=== PATIENT | male | born 2000 | race Caucasian/White ===

== ENCOUNTER 2024-02-06 17:27 | Emergency (ER) | payer OTHER, SELFPAY ==
[2024-02-06 17:39] VITALS: BP 152/65; PULSE 98; RESP 16; TEMP 36.8; O2SAT 100
--- NOTE | 2024-02-06 18:07 | ED.EYEPROB ---
HPI - Eye Problem General Chief complaint: Eye Problems Stated complaint: Eyes Irritation Time Seen by Provider: 02/06/24 17:45 Source: patient Mode of arrival: ambulatory Limitations: no limitations History of Present Illness HPI Narrative: Milton is a 23-year-old male patient presenting to the clinic today with complaints of left eye irritation/discomfort. He reports he was cutting some plywood yesterday and thinks he got some of the plywood in his left eye. Has pain to the left upper eye. Eye has been watering a lot and feels as though there may be something in it. Related Data Allergies Allergy/AdvReac Type Severity Reaction Status Date / Time No Known Allergies Allergy Mild Verified 02/06/24 17:31 Review of Systems Review of Systems: Pertinent positives per HPI. Patient denies any fever, chills, rash, headache, visual changes, dizziness, cough, runny nose, sore throat, shortness of breath, chest pain, palpitations, nausea, vomiting, diarrhea, constipation, abdominal pain, or any urinary issues. PMFSH Comments At the time of my signature, I reviewed and agree with the nursing past medical, surgical, social, and family history. There is no relevant family history pertinent to the patient complaint. Exam Narrative: General: Well-developed, well nourished, in no apparent distress Head: Normocephalic, atraumatic Eyes: Pupils equally round and reactive to light bilaterally, EOM intact, right sclera and conjunctive clear, no discharge, lids normal, left conjunctiva and sclera injected with corneal abrasion to the top of the left eye at 1200 above pupil. Ears: TMs intact and clear, ear canals clear, no drainage, grossly hearing normal. Nose: Nares patent, no discharge, no inflammation, no sinus tenderness. Mouth: Oropharynx without lesions or masses, good dentition, MMM. Neck: Supple, trachea midline, no enlargement of anterior or posterior cervical nodes, no thyroid masses or goiter palpable. Cardio: Regular rate and rhythm, s1 and s2 normal, no murmur appreciated. Resp: Clear to auscultation bilaterally anteriorly and posteriorly, no rhonchi, rales, wheezing or rubs Course Course Emergency Course: Portions of this record may have been created with voice recognition software. Level of Care: Express Care Visit Vital Signs Vital signs: Vital Signs Temperature 36.8 C 02/06/24 17:39 Pulse Rate 98 02/06/24 17:39 Respiratory Rate 16 02/06/24 17:39 Blood Pressure 152/65 H 02/06/24 17:39 Pulse Oximetry 100 02/06/24 17:39 Oxygen Delivery Room Air 02/06/24 17:39 Temperature 36.8 C 02/06/24 17:39 Pulse Rate 98 02/06/24 17:39 Respiratory Rate 16 02/06/24 17:39 Blood Pressure 152/65 H 02/06/24 17:39 Pulse Oximetry 100 02/06/24 17:39 Oxygen Delivery Room Air 02/06/24 17:39 Vital signs reviewed Procedures Other Procedure Procedure 1: Other Procedure: Topical anesthetic was instilled with good anesthesia using 1gtt of opth anesthetic agent (tetracaine). Fluorescein stain of the left eye was performed with a corneal abrasion to the left eye at 12:00 p.m. just above the people over the iris. NO FB, ulcer or dendritic lesions. Upper lid was everted and no FB or lesions were noted. NO Madhuri sign. Normal saline irrigation eye solution was performed and the patient tolerated the procedure well, no adverse reaction or complications. MDM - Eye Problem MDM Narrative Medical decision making narrative: At the time of visit patient is resting comfortably on the exam table. Patient appears to be nontoxic. Procedure: Wood's lamp exam was performed and a corneal abrasion was found at 12:00 p.m. just above the pupil-over the iris Plan: I suspect patient has a corneal abrasion. Prescription for tobramycin eyedrops was sent to the pharmacy. Supportive measures were discussed with the patient and they voiced understanding discharge instructions and agrees to treatment plan.
== END 2024-02-06 18:25 | disposition home or self-care (01) ==
PROVIDERS: Emergency Provider Nurse Practitioner Family
DX: S05.02XA Injury of conjunctiva and corneal abrasion without foreign body, left eye, initial encounter (principal); X58.XXXA Exposure to other specified factors, initial encounter
CPT/HCPCS: 99213; A9270; G0463

== ENCOUNTER 2025-02-22 05:20 | Emergency (ER) | payer OTHER, SELFPAY ==
--- NOTE | ~2025-02-22 | CT_ITS ---
Non-contrast Head CT History: Head injury Technique: Axial non-contrast imaging of the brain was performed. Dose reduction technique was used on this scan by utilizing automated exposure control and iterative reconstruction technique. The dose -length product (DLP) was 681.00 mGy-cm. Findings: There is no evidence of intracranial hemorrhage, mass lesion, or acute infarct. Brain par enchyma appears normal. The ventricles and subarachnoid spaces are normal in size. The calvarium ap pears normal. The visualized paranasal sinuses and mastoid air cells are clear. Impression: No significant abnormality seen. Reviewed, dictated and finalized at location . Impression: No significant abnormality seen.
--- NOTE | ~2025-02-22 | CT_ITS ---
CT Facial Bones and Cervical Spine Clinical Indication: Head injury Technique: Contiguous axial scans were obtained through the facial bones and cervical spine followed by coronal and sagittal reconstructions. Dose reduction technique was used on this scan by utilizing automated exposure control and iterative reconstruction technique. The dose-length product (DLP) was 276.37 mGy-cm. Findings: CT facial bones: There are acute bilateral nasal bone fractures, with rightward displacement/angulati on. Probable focal angulated nondisplaced fracture of the vomer. The visualized paranasal sinuses are clear. Intraorbital soft tissues appear normal. CT cervical spine: No fractures or subluxation. There is straightening of the normal cervical lordos is. The intervertebral disc spaces are preserved. No prevertebral soft tissue swelling. Impression: Acute, displaced/angulated bilateral nasal bone fractures. Probable focal angulated, nondisplaced fracture of the vomer. No fracture or subluxation of the cervical spine. Reviewed, dictated and finalized at [facility]. Impression: Acute, displaced/angulated bilateral nasal bone fractures. Probable focal angulated, nondisplaced fracture of the vomer. No fracture or subluxation of the cervical spine.
--- OUTSIDE RECORDS SUMMARY | 2025-02-22 05:22 | XMS_ITS | Clinical Summary ---
Author Organization [facility] Address [address] [place] [address] Care Team Providers Care Stitch Wheeler Name Role Phone Unavailable Primary Care Provider Unavailabl e Source Comments [facility],non-owned Affiliates and Associated Physician Practices is amultiple site organization consisting of ambulatory clinics and hospital sitesin [place], [place], [place] and [place]. This disclosure is being madepursuant to the Care Everywhere program and may not contain all information available regarding this patient. 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 Gender Identity Not on file Sexual Orientation Not on file Plan of Treatment Health Maintenance Due Date Last Done Comments HIV SCREENING 2014 HPV VACCINE (1 - Male 3-dose series) 2014 HEPATITIS C SCREENING 11/27/2017 DTAP/TDAP/TD VACCINES (1 - Tdap) 2018 HEPATITIS B VACCINE (1 of 3 - 19+ 3-dose series) 2018 COVID-19 VACCINE (1 - 2023-2 5 season) 2024 DEPRESSION SCREENING 10/08/2024 INFLUENZA VACCINE (Season Ended) 2025 ZOSTER VACCINE (1 of 2) 2049 HIB VACCINE Aged Out No longer eligi ble based on patient's age to complete this topic MENINGOCOCCAL (Group B) VACC INE SHARED DECISION-MAKING Aged Out No longer eligibl e based on patient's age to complete this topic MENINGOCOCCAL GROUPS A/C/Y/W VACCINE Aged Out No longer eligible b ased on patient's age to complete this topic PNEUMOCOCCAL VACCINE Aged Out No long er eligible based on patient's age to complete this topic
[2025-02-22 05:25] VITALS: BP 143/75; PULSE 100; RESP 20; TEMP 36.6; O2SAT 100
[2025-02-22] MEDS: oxyCODONE HCL (*CRX) 5 MG TAB IR PO (05:41)
--- NOTE | 2025-02-22 05:42 | ED.FALL ---
HPI - Fall General Chief Complaint: Trauma Stated Complaint: broken nose Time Seen by Provider: 02/22/25 05:26 History of Present Illness HPI Narrative: Patient had been at a [employer] earlier, drinking, and he tripped on some steps and fell down the stairs, landing on his nose. Reporting pain to his nose and bleeding. Related Data Allergies Allergy/AdvReac Type Severity Reaction Status Date / Time No Known Allergies Allergy Mild Verified 02/22/25 05:26 Review of Systems Review of Systems: All systems reviewed & are unremarkable except as noted in HPI and below Exam Narrative: EXAMINATION OF ORGAN SYSTEMS/BODY AREAS: Constitutional: Vital signs per nursing GENERAL:[No acute distress, non-toxic appearing.] HEAD: Bloody face EYES: EOMI, conjunctiva normal, no signs of entrapment ENT: Obviously broken nose LUNGS: Nonlabored breathing. HEART: [Regular rate and rhythm] ABD: [Soft], [nontender to palpation] EXT: Normal range of motion SKIN: Small laceration to left nasal bridge, abrasions to face NEURO: [Alert and oriented x 3. No gross focal sensory or strength deficits.] PSYCH: Normal affect Course Vital Signs Vital signs: Vital Signs Temperature 97.9 F 02/22/25 05:25 Pulse Rate 100 02/22/25 05:25 Respiratory Rate 20 02/22/25 05:25 Blood Pressure 143/75 H 02/22/25 05:25 Pulse Oximetry 100 02/22/25 05:25 Temperature 97.9 F 02/22/25 05:25 Pulse Rate 73 02/22/25 06:17 Respiratory Rate 18 02/22/25 06:17 Blood Pressure 120/75 02/22/25 06:17 Pulse Oximetry 100 02/22/25 06:17 Procedures Laceration Laceration 1: Date: 02/22/25 Time: 07:08 Site: face Side (If applicable): left Size (cm): 1 Description: linear Depth: simple, single layer ====== Skin Level ====== Skin layer closed with: dermabond ====== Subcutaneous Layer ====== ====== Muscle Layer ====== ====== Tendon Layer ====== MDM - Fall MDM Narrative Medical decision making narrative: Patient presents after falling, landing on his face, denies injuries elsewhere, has obviously broken nose and cut to his face. Patient refused any needles including tetanus, stitches. Agreeable to glue so his face is clean with sterile water and then glued with good approximation. CT head, C-spine, face obtained, showing nasal bone fractures. Discussed follow-up with ENT for repair and return precautions. He has a sober ride who is taking him home. Discharge Plan Discharge Clinical Impression: Fracture of nasal bone Patient Disposition: Home Condition: Stable Instructions: Nasal Fracture (ED) Additional Instructions: Please do not blow your nose or touch your nose for the next few days. You can use nasal saline mist as needed. Use ice on your face to help with the swelling, you can take Tylenol for pain as needed, and please follow-up with the ENT and return to the ER if you have any further issues. Patient Language: Romansh Prescriptions: New oxycodone 5 mg tablet 5 mg PO Q8H PRN (Reason: pain) Qty: 10 0RF No Action tobramycin 0.3 % drops 1 drp EACH EYE Q4H 7 Days Qty: 5 0RF Follow-up/Referrals: Rafita Hamilton MD [Physician] - 2 Days PHYSICIAN,MEDICAL ASSISTANT INTERNAL [facility]ICINE [Primary Care Provider] - Stand Alone Forms: Work/School Release IP
--- NOTE | 2025-02-22 05:46 | PC.NURSE ---
Patient in CT at this time.
--- OUTSIDE RECORDS SUMMARY | 2025-02-22 06:11 | XMS_ITS | Clinical Summary ---
Author Organization [facility] Address [address] [place] [address] Care Team Providers Care Automatic Silk Screen Printer Name Role Phone Unavailable Primary Care Provider Unavailabl e Source Comments [facility],non-owned Affiliates and Associated Physician Practices is amultiple site organization consisting of ambulatory clinics and hospital sitesin [place], [place], [place] and [place]. This disclosure is being madepursuant to the Care Everywhere program and may not contain all information available regarding this patient. 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
[2025-02-22 06:17] VITALS: BP 120/75; PULSE 73; RESP 18; O2SAT 100
== END 2025-02-22 06:27 | disposition home or self-care (01) ==
PROVIDERS: Emergency Provider Emergency Medicine
DX: S02.2XXA Fracture of nasal bones, initial encounter for closed fracture (principal); W10.9XXA Fall (on) (from) unspecified stairs and steps, initial encounter
CPT/HCPCS: 12011; 70450; 70486; 72125; 99284; A9270